=== PATIENT | male | born 1965 | race Caucasian/White ===

== ENCOUNTER → 2019-11-15 | Outpatient (CLI) | payer BC ==
--- NOTE | 2019-11-15 15:51 | XR ---
EXAMINATION TYPE: XR chest 2V DATE OF EXAM: 11/15/2019 COMPARISON: 03/24/2013 HISTORY: Chest tightness and congestion for 2 months TECHNIQUE: Frontal and lateral views of the chest are obtained. FINDINGS: There is no focal air space opacity, pleural effusion, or pneumothorax seen. Pulmonary hyp erinflation of underlying COPD. The nodular density in the right upper lung is stable from 2012 likel y from prior granulomatous change. The cardiac silhouette size is within normal limits. The osseous structures are intact. IMPRESSION: No acute cardiopulmonary process. Findings suggesting underlying COPD.
== END | disposition home or self-care (01) ==
LOC: RADXRMAIN 15:33
PROVIDERS: ATTEND Family Medicine
DX: R05 Cough (principal)
CPT/HCPCS: 71046

== ENCOUNTER → 2019-11-22 | Outpatient (CLI) | payer BC | END | disposition home or self-care (01) | LOC: CPPFTMAIN 09:25 | PROVIDERS: ATTEND Family Medicine | DX: J44.9 Chronic obstructive pulmonary disease, unspecified (principal); R94.2 Abnormal results of pulmonary function studies | CPT/HCPCS: 94060; 94726; 94729 ==

== ENCOUNTER → 2020-07-03 | Outpatient (CLI) | payer BC ==
--- NOTE | 2020-07-04 10:07 | ECHOF ---
Referral Reason:R06.02 Sohrtness of breath, R07.9 Chest pain MEASUREMENTS -------- HEIGHT: 182.9 cm WEIGHT: 79.4 kg BP: RVIDd: 2.9 cm (< 3.3) IVSd: 1.3 cm (0.6 - 1.1) LVIDd: 3.8 cm (3.9 - 5.3) LVPWd: 1.1 cm (0.6 - 1.1) IVSs: 1.6 cm LVIDs: 3.3 cm LVPWs: 1.4 cm LA Diam: 3.4 cm (2.7 - 3.8) LAESV Index (A-L): 13.85 ml/m Ao Diam: 3.3 cm (2.0 - 3.7) AV Cusp: 2.2 cm (1.5 - 2.6) MV EXCURSION: 17.354 mm (> 18.000) MV EF SLOPE: 107 mm/s (70 - 150) EPSS: 0.8 cm MV E Panfilo: 0.56 m/s MV DecT: 285 ms MV A Panfilo: 0.72 m/s MV E/A Ratio: 0.78 RAP: 5.00 mmHg RVSP: 20.56 mmHg FINDINGS -------- Sinus rhythm. This was a technically adequate study. The left ventricular size is normal. There is mild concentric left ventricular hypertrophy. Overa ll left ventricular systolic function is normal with, an EF between 55 - 60 %. The diastolic fillin g pattern is normal for the age of the patient 9.22. The right ventricle is normal in size. Normal LA size by volume 22+/-6 ml/m2. The right atrial size is normal. The aortic valve is trileaflet, and appears structurally normal. No aortic stenosis or regurgitation. The mitral valve is normal. Mild mitral regurgitation is present. The tricuspid valve appears structurally normal. Mild tricuspid regurgitation present. Right vent ricular systolic pressure is normal at < 35 mmHg. There is no pulmonic regurgitation present. The aortic root size is normal. There is no pericardial effusion. CONCLUSIONS -------- 1. There is mild concentric left ventricular hypertrophy. 2. Overall left ventricular systolic function is normal with, an EF between 55 - 60 %. 3. Normal LA size by volume 22+/-6 ml/m2. 4. The aortic valve is trileaflet, and appears structurally normal. No aortic stenosis or regurgitati on. 5. Mild mitral regurgitation is present. 6. Mild tricuspid regurgitation present. 7. There is no pericardial effusion. [employer]: Betty Juarez RDCS
== END | disposition home or self-care (01) ==
LOC: RADECHMAIN 14:44
PROVIDERS: ATTEND Family Medicine
DX: I08.1 Rheumatic disorders of both mitral and tricuspid valves (principal); N11.1 Chronic obstructive pyelonephritis
CPT/HCPCS: 93306

== ENCOUNTER 2021-12-11 20:12 | Emergency (ER) | payer BC, OTHER ==
[2021-12-11 20:32] VITALS: RESP 18; TEMP 97.7
[2021-12-11] MEDS ORDERED: SODIUM CHLORIDE 0.9% 500 ML 1,000 ML IV STA (20:40)
[2021-12-11] MEDS ORDERED: LIDOCAINE 2%-EPI 1:100,000 20 ML VIAL SQ STA (20:48)
[2021-12-11] MEDS ORDERED: DIPH,PERTUS(ACELL)TETVAC-LF 0.5 ML VIAL IM ONE (20:53)
--- NOTE | 2021-12-11 20:55 | ED ---
General Adult HPI - General Chief complaint: Head Injury Stated complaint: Fall,Head Injury Time Seen by Provider: 12/11/21 20:37 Source: patient, RN notes reviewed Mode of arrival: ambulatory Limitations: no limitations - History of Present Illness Initial comments: This is a pleasant 56-year-old male who passed out in his garage after shoveling snow. He states it may been 10 minutes after shoveling snow. Patient does not recall any preceding symptomology. He had no problems shoveling the snow. In fact he states he was just pushing the snow. He denied any chest pain or shortness of breath. No abdominal pain. No headache. No change in vision or hearing. No dizziness or lightheadedness. However patient states he was in his garage changing clothes and then woke up on the floor. He did sustain a laceration to his left frontal scalp. Also complaining of some neck pain. He denies any other symptomology at this time. No focal neurologic deficits. No imbalance. Patient has no history of syncopal episodes. Patient has a history of SVT and hyperlipidemia. No blood thinners. - Related Data Home Medications Medication Instructions Recorded Confirmed No Known Home Medications 12/11/21 12/11/21 Allergies Allergy/AdvReac Type Severity Reaction Status Date / Time No Known Allergies Allergy Verified 12/11/21 21:15 Review of Systems ROS Statement: Those systems with pertinent positive or pertinent negative responses have been documented in the HPI. ROS Other: All systems not noted in ROS Statement are negative. Past Medical History Past Medical History: Hyperlipidemia, Supraventricular Tachycardia (SVT) Additional Past Medical History / Comment(s): hx migraines, trigeminal neuralgia History of Any Multi-Drug Resistant Organisms: None Reported Additional Past Surgical History / Comment(s): oral surgery Past Anesthesia/Blood Transfusion Reactions: No Reported Reaction Past Psychological History: No Psychological Hx Reported Smoking Status: Current every day smoker Past Alcohol Use History: Daily, Occasional Past Drug Use History: None Reported - Past Family History Mother Family Medical History: Cancer General Exam - General Exam Comments Initial Comments: Healthy-appearing 56-year-old male no distress. Neurologically intact. Cranial history through 12 are intact. Patient is alert and oriented 4. Does not appear to be ill or toxic. Limitations: no limitations General appearance: alert, in no apparent distress Head exam: Present: atraumatic, normocephalic, normal inspection Eye exam: Present: normal appearance, PERRL, EOMI. Absent: scleral icterus, conjunctival injection, periorbital swelling ENT exam: Present: normal exam, mucous membranes moist Neck exam: Present: normal inspection, tenderness (Paraspinal tenderness noted with minimal midline tenderness. Cervical collar applied.). Absent: meningismus, lymphadenopathy Respiratory exam: Present: normal lung sounds bilaterally. Absent: respiratory distress, wheezes, rales, rhonchi, stridor Cardiovascular Exam: Present: regular rate, normal rhythm, normal heart sounds. Absent: bradycardia, tachycardia, systolic murmur, diastolic murmur, rubs, gallop, clicks GI/Abdominal exam: Present: soft, normal bowel sounds. Absent: distended, tenderness, guarding, rebound, rigid Extremities exam: Present: normal inspection, full ROM, normal capillary refill. Absent: tenderness, pedal edema, joint swelling, calf tenderness Back exam: Present: normal inspection Neurological exam: Present: alert, oriented X3, CN II-XII intact Expanded Patient oriented to: Present: person, place Speech: Present: fluid speech Cerebellar function: Finger to Nose: Normal, Heel to Duncan: Normal Eye Response: (4) open spontaneously Motor Response: (6) obeys commands Verbal Response: (5) oriented Michelle Total: 15 Psychiatric exam: Present: normal affect, normal mood Skin exam: Present: warm, dry, intact, normal color. Absent: rash Course Vital Signs 12/11/21 20:29 Temperature 97.7 F Pulse Rate 96 Respiratory 18 Rate Blood Pressure 147/100 O2 Sat by Pulse 96 Oximetry EKG Findings - EKG Comments: EKG Findings:: EKG done at 2050 reviewed ED attending physician reveals normal sinus rhythm with a rightward axis. T-wave abnormality noted in the lateral precordial leads. Patient also has flipped T wave in lead 3. No evidence of ST elevation. No comparison study. Normal intervals. Procedures - Laceration Laceration #1 Consent Obtained: verbal consent Indication: laceration Site: face Size (cm): 4 Description: stellate, irregular Depth: simple, single layer Anesthetic Used: lidocaine 2%, with epi Anesthesia Technique: local infiltration Amount (mls): 3 Pre-repair: wound explored, irrigated extensively Type of Sutures: nylon Size of Sutures: 5-0 Number of Sutures: 6 Technique: simple, interrupted, other Patient Tolerated Procedure: well, no complications Medical Decision Making - Medical Decision Making Unwitnessed syncopal episode with no preceding symptomology, subsequent head injury, unknown down time. Patient asymptomatic and neurologically intact at this time. Computed tomography scan was ordered due to the nature of injury. Patient does not recall the mechanism nor what he hit his head on. There could be a dangerous mechanism. CT of the brain and cervical spine were ordered due to this reason. Patient doesn't recall falling. Therefore, unknown mechanism and unknown height. Patient had a unwitnessed syncopal episode with subsequent head injury and forehead laceration. Patient had nonspecific EKG changes to include T-wave inversions. Case was discussed in detail with ED attending physician. Patient was advised to be admitted. Patient is refusing admission. Patient like to leave AGAINST MEDICAL ADVICE. AMA Documentation: I, personally, had a discussion with the patient concerning their presumed diagnoses and my recommendations regarding available options for treatment. The patient understand the risks and benefits of the treatment options presented and also understands the risks of not following these recommendations and leaving the hospital against medical advice. The patient clearly has capacity to make an informed decision regarding further treatment at this time and is electing to sign out against my medical advice. Follow up arrangements were discussed with the patient and the patient was advised to consider returning to the emergency department or seeking further care should they have a worsening of their medical condition, if they should develop new or concerning symptoms, or if they should change their mind about receiving further medical care. ED attending physician is Dr. Jean - Lab Data Result diagrams: 12/11/21 20:38 12/11/21 20:38 Lab Results 12/11/21 12/11/21 12/11/21 Range/Units 20:38 20:38 20:38 WBC 10.7 H (3.8-10.6) k/uL RBC 4.62 (4.30-5.90) m/uL Hgb 15.6 (13.0-17.5) gm/dL Hct 45.6 (39.0-53.0) % MCV 98.8 (80.0-100.0) fL MCH 33.7 (25.0-35.0) pg MCHC 34.1 (31.0-37.0) g/dL RDW 11.9 (11.5-15.5) % Plt Count 219 (150-450) k/uL MPV 7.4 Neutrophils % 64 % Lymphocytes % 24 % Monocytes % 7 % Eosinophils % 3 % Basophils % 1 % Neutrophils # 6.9 (1.3-7.7) k/uL Lymphocytes # 2.6 (1.0-4.8) k/uL Monocytes # 0.7 (0-1.0) k/uL Eosinophils # 0.3 (0-0.7) k/uL Basophils # 0.1 (0-0.2) k/uL PT 10.5 (9.0-12.0) sec INR 1.0 (<1.2) APTT 23.5 (22.0-30.0) sec D-Dimer (<0.60) mg/L FEU Sodium 138 (137-145) mmol/L Potassium 4.3 (3.5-5.1) mmol/L Chloride 105 (98-107) mmol/L Carbon Dioxide 20 L (22-30) mmol/L Anion Gap 13 mmol/L BUN 17 (9-20) mg/dL Creatinine 0.92 (0.66-1.25) mg/dL Est GFR (CKD-EPI)AfAm >90 (>60 ml/min/1.73 sqM) Est GFR (CKD-EPI)NonAf >90 (>60 ml/min/1.73 sqM) Glucose 96 (74-99) mg/dL Calcium 9.3 (8.4-10.2) mg/dL Magnesium 2.1 (1.6-2.3) mg/dL Total Bilirubin 0.5 (0.2-1.3) mg/dL AST 32 (17-59) U/L ALT 32 (4-49) U/L Alkaline Phosphatase 47 (38-126) U/L Troponin I (0.000-0.034) ng/mL NT-Pro-B Natriuret Pep pg/mL Total Protein 7.6 (6.3-8.2) g/dL Albumin 4.5 (3.5-5.0) g/dL 12/11/21 12/11/21 12/11/21 Range/Units 20:38 20:38 20:59 WBC (3.8-10.6) k/uL RBC (4.30-5.90) m/uL Hgb (13.0-17.5) gm/dL Hct (39.0-53.0) % MCV (80.0-100.0) fL MCH (25.0-35.0) pg MCHC (31.0-37.0) g/dL RDW (11.5-15.5) % Plt Count (150-450) k/uL MPV Neutrophils % % Lymphocytes % % Monocytes % % Eosinophils % % Basophils % % Neutrophils # (1.3-7.7) k/uL Lymphocytes # (1.0-4.8) k/uL Monocytes # (0-1.0) k/uL Eosinophils # (0-0.7) k/uL Basophils # (0-0.2) k/uL PT (9.0-12.0) sec INR (<1.2) APTT (22.0-30.0) sec D-Dimer 0.35 (<0.60) mg/L FEU Sodium (137-145) mmol/L Potassium (3.5-5.1) mmol/L Chloride (98-107) mmol/L Carbon Dioxide (22-30) mmol/L Anion Gap mmol/L BUN (9-20) mg/dL Creatinine (0.66-1.25) mg/dL Est GFR (CKD-EPI)AfAm (>60 ml/min/1.73 sqM) Est GFR (CKD-EPI)NonAf (>60 ml/min/1.73 sqM) Glucose (74-99) mg/dL Calcium (8.4-10.2) mg/dL Magnesium (1.6-2.3) mg/dL Total Bilirubin (0.2-1.3) mg/dL AST (17-59) U/L ALT (4-49) U/L Alkaline Phosphatase (38-126) U/L Troponin I <0.012 (0.000-0.034) ng/mL NT-Pro-B Natriuret Pep 19 pg/mL Total Protein (6.3-8.2) g/dL Albumin (3.5-5.0) g/dL Disposition Clinical Impression: Closed head injury, Syncopal episodes, Facial laceration, Left against medical advice Disposition: Left Against Medical Advice Condition: Stable Instructions (If sedation given, give patient instructions): Head Injury (ED), Syncope (ED), Laceration (ED) Additional Instructions: Follow the head injury instructions. Follow-up with your regular doctor tomorrow. Wash the area with warm soap and water. Suture removal in 5 days. Return immediately if any symptoms worsen, any proms arise, or any signs or symptoms of infection develop. Patient was told to return to the ER for any signs or symptoms worsen. Told to return immediately if any other problems arise. All questions answered. Treatment plan discussed. Patient in agreement Referrals: Carmen Alejandra MD [Primary Care Provider] - 12/12/21 Neil Irwin MD [STAFF PHYSICIAN] - 1-2 days Time of Disposition: 22:10
[2021-12-11 21:02] LABS: Basophils # (A) 0.1 k/uL (0-0.2); Basophils % (A) 1 %; Eosinophils # (A) 0.3 k/uL (0-0.7); Eosinophils % (A) 3 %; HCT 45.6 % (39.0-53.0); HGB 15.6 gm/dL (13.0-17.5); Lymphocytes # (A) 2.6 k/uL (1.0-4.8); Lymphocytes % (A) 24 %; MCH 33.7 pg (25.0-35.0); MCHC 34.1 g/dL (31.0-37.0); MCV 98.8 fL (80.0-100.0); Mean Platelet Volume 7.4; Monocytes # (A) 0.7 k/uL (0-1.0); Monocytes % (A) 7 %; Neutrophils # (A) 6.9 k/uL (1.3-7.7); Neutrophils % (A) 64 %; Platelet Count 219 k/uL (150-450); RBC 4.62 m/uL (4.30-5.90); RDW 11.9 % (11.5-15.5); WBC 10.7 k/uL (3.8-10.6)
[2021-12-11 21:13] LABS: Partial Thromboplastin Time 23.5 sec (22.0-30.0); Prothrombin Time 10.5 sec (9.0-12.0)
[2021-12-11 21:17] LABS: ALT 32 U/L (4-49); AST 32 U/L (17-59); African American GFR (CKD) >90 (>60 ml/min/1.73 sqM); Albumin 4.5 g/dL (3.5-5.0); Alkaline Phosphatase 47 U/L (38-126); Anion Gap 13 mmol/L; Blood Urea Nitrogen 17 mg/dL (9-20); Calcium 9.3 mg/dL (8.4-10.2); Carbon Dioxide 20 mmol/L (22-30); Chloride 105 mmol/L (98-107); Glucose 96 mg/dL (74-99); Magnesium 2.1 mg/dL (1.6-2.3); Non-African American GFR(CKD) >90 (>60 ml/min/1.73 sqM); Potassium 4.3 mmol/L (3.5-5.1); Sodium 138 mmol/L (137-145); Total Bilirubin 0.5 mg/dL (0.2-1.3); Total Protein 7.6 g/dL (6.3-8.2)
--- NOTE | 2021-12-11 21:41 | XR ---
EXAMINATION TYPE: XR chest 1V portable DATE OF EXAM: 12/11/2021 COMPARISON: 11/15/2019 HISTORY: Chest pain TECHNIQUE: FINDINGS: Heart is normal. Lungs are clear of consolidation. There are no hilar masses. Pulmonary vas cularity is normal. Bony thorax is intact. IMPRESSION: Normal chest. No change
--- NOTE | 2021-12-11 21:44 | CT ---
EXAMINATION TYPE: CT brain gabriella osborne con DATE OF EXAM: 12/11/2021 COMPARISON: None HISTORY: Syncope, fall, head injury, neck pain CT DLP: 1548.8 mGycm Automated exposure control for dose reduction was used. Images of the brain and cervical spine obtained without contrast. Ventricles have normal size. There is no mass effect or midline shift. There is no sign of intracrani al hemorrhage. There is left frontal scalp hematoma measuring 7 mm in thickness. Calvarium is intact. No evidence of a skull fracture. Mastoid sinuses appear normal. The skull base is intact. The cervical vertebra have fairly normal spacing and alignment. Posterior elements are intact. Prever tebral soft tissues are intact. Facet joints appear normal. IMPRESSION: Cervical spine appears normal for age. No fracture. Negative CT scan of the brain. Small left frontal scalp hematoma.
[2021-12-11 23:00] VITALS: BP 152/93; PULSE 80
== END 2021-12-11 22:19 | disposition left against medical advice (07) ==
LOC: EC 20:12
DX: S09.90XA Unspecified injury of head, initial encounter (principal); Z23 Encounter for immunization; R55 Syncope and collapse; S01.81XA Laceration without foreign body of other part of head, initial encounter; F17.200 Nicotine dependence, unspecified, uncomplicated; Y93.H1 Activity, digging, shoveling and raking; Y92.59 Other trade areas as the place of occurrence of the external cause; X58.XXXA Exposure to other specified factors, initial encounter
CPT/HCPCS: 12013; 12015; 36415; 70450; 71045; 72125; 80053; 83735; 83880; 84484; 85025; 85379; 85610; 85730; 90471; 90715; 93005; 99284

== ENCOUNTER → 2022-12-10 | Outpatient (CLI) | payer BC ==
--- NOTE | 2022-12-11 06:45 | CTL ---
EXAMINATION TYPE: CT Low Dose Lung DATE OF EXAM ORDERED: 12/10/2022 HISTORY: Long-term tobacco use. Lung cancer screening CT DLP: 92.[address] CTDI: 2.2 mGy Automated exposure control for dose reduction was used. SCREENING VISIT: Baseline COMPARISON: None. TECHNIQUE: Low dose computed tomography scan was performed through the chest at 1 mm thick sections a nd reconstructed images in multiple planes at 1 mm and [address] DIAGNOSTIC QUALITY: Satisfactory FINDINGS: LUNG NODULES: None. LUNGS: COPD: Severity: None Fibrosis: Severity: Mild biapical Lymph nodes: None Other findings: None RIGHT PLEURAL SPACE: Effusion: None Calcification: None Thickening: None Pneumothorax: None LEFT PLEURAL SPACE: Effusion: None Calcification: None Thickening: None Pneumothorax: None HEART: Heart Size: Normal Coronary Calcification: None Pericardial Effusion: None OTHER FINDINGS: Upper abdomen: None Bony thorax: None Supraclavicular region: None Other: None IMPRESSION: No suspicious nodules present. CT LUNG RAD AND CT CHEST RECOMMENDATION: Lung-Rad 1 Negative: Continue annual screening with LDCT in 12 months. S Modifier (other clinically significant findings): None
== END | disposition home or self-care (01) ==
LOC: RADCTMAIN 16:14
PROVIDERS: ATTEND Family Medicine
DX: Z12.2 Encounter for screening for malignant neoplasm of respiratory organs (principal); Z87.891 Personal history of nicotine dependence
CPT/HCPCS: 71271

== ENCOUNTER → 2024-12-08 | Outpatient (CLI) | payer OTHER ==
--- NOTE | 2024-12-08 09:15 | CTL ---
EXAMINATION TYPE: CT Low Dose Lung DATE OF EXAM ORDERED: 12/08/2024 COMPARISON: CT Low Dose Lung 12/10/2022 CLINICAL INDICATION: Male, 59 years old with history of Z12.2 LUNG CA SCR F17.210 CURRENT SMOKER; [facility] , smoker, Lung cancer screening, History of Smoking/tobacco use. TECHNIQUE: Low dose computed tomography scan was performed through the chest at 1 mm thick sections a nd reconstructed images in multiple planes at 1 mm and [address] DLP: 88.[address] CTDI: 2.3 mGy Automated exposure control for dose reduction was used. CT DIAGNOSTIC QUALITY: Satisfactory FINDINGS: Nodules: Few stable pulmonary nodules dating back to prior exam. Examples include a right middle lobe 5.3 mm s olid pulmonary nodule (series 6, image 45), right upper lobe 3.1 mm pulmonary nodule abutting the min or fissure (series 6, image 39), right upper lobe 3.9 mm pulmonary nodule (series 6, image 37), right upper lobe 2.0 mm pulmonary nodule (series 6, 232), 2 adjacent 2.7 and 2.3 mm pulmonary nodules (ser ies 6, image 29). LUNGS: COPD: Severity: Minimal Fibrosis: Severity: None Lymph nodes: None Other findings: Minimal biapical pleural parenchymal scarring. RIGHT PLEURAL SPACE: Effusion: None Calcification: None Thickening: None Pneumothorax: None LEFT PLEURAL SPACE: Effusion: None Calcification: None Thickening: None Pneumothorax: None HEART: Heart Size: Normal Coronary Calcification: None Pericardial Effusion: None OTHER FINDINGS: Upper abdomen: None Bony thorax: None Supraclavicular region: None Other: None IMPRESSION: Few stable pulmonary nodules measuring less than 6 mm. No new or enlarging pulmonary nodu les. CT LUNG RAD AND CT CHEST RECOMMENDATION: Lung-Rad 2 Benign Appearance or Behavior: Continue annual sc reening with LDCT in 12 months. S Modifier (other clinically significant findings): None [facility], , 12/08/2024 9:12 AM
== END | disposition home or self-care (01) ==
LOC: RADCTMAIN 08:18
PROVIDERS: ATTEND Family Medicine
DX: Z12.2 Encounter for screening for malignant neoplasm of respiratory organs (principal); F17.210 Nicotine dependence, cigarettes, uncomplicated; R91.8 Other nonspecific abnormal finding of lung field
CPT/HCPCS: 71271